=== PATIENT | female | born 2000 | race Caucasian/White ===

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

== ENCOUNTER → 2022-10-22 | Outpatient (CLI) | payer BC ==
--- NOTE | 2022-10-22 09:23 | Diagnostic Imaging Report ---
PROCEDURE: US Gallbladder. TECHNIQUE: Multiple real-time grayscale images were obtained over the right upper quadrant in various projections. INDICATION: Right upper quadrant pain, nausea, vomiting and bloating. FINDINGS: The liver is normal in size without focal lesions. There is hepatopetal flow in main portal vein. No biliary duct dilatation. Common bile duct measures less than 3 mm. There is no cholelithiasis, gallbladder wall thickening or pericholecystic fluid. Pancreas is unremarkable. Aorta is nonaneurysmal. IVC is patent. Right kidney is normal. No ascites. Overall examination is somewhat technically limited due to bowel gas. IMPRESSION: Essentially unremarkable right upper quadrant ultrasound. Dictated by: Dictated on workstation # [id number]
--- NOTE | 2022-10-22 10:44 | Diagnostic Imaging Report ---
RADIOPHARMACEUTICAL: 5.23 mCi Tc-99m Choletec IV INDICATION: Right upper quadrant pain. COMPARISON: Ultrasound from this same date. TECHNIQUE: Anterior dynamic imaging for 45 minutes. Additional 60 minute imaging was performed after patient ingested an 8 ounce can of Ensure Plus. FINDINGS: There is homogenous uptake throughout the liver. The gallbladder is visualized at 10 minutes and small bowel at 20 minutes. After ingesting the 8 ounce can of Ensure Plus, there is normal contraction of the gallbladder with normal calculated GBEF at 63%. IMPRESSION: 1. Normal HIDA Scan without evidence of cystic or common duct obstruction. 2. Normal GBEF of 63%. Dictated by: Dictated on workstation # [id number]
== END ==
LOC: RAD 07:19
PROVIDERS: ATTEND Surgery
DX: R10.11 Right upper quadrant pain (principal); R11.2 Nausea with vomiting, unspecified
CPT/HCPCS: 76705; 78227; A9537

== ENCOUNTER 2022-10-31 06:21 | Outpatient (CLI) | payer BC ==
[~2022-10-31] VITALS: Ht 170.2 cm; Wt 74.0 kg
[2022-10-31] MEDS ORDERED: NORE-211 PO (09:35)
[2022-10-31] MEDS ORDERED: SPIR50TA4 PO (09:35)
[2022-11-07] MEDS ORDERED: PANT40TA2 PO (13:02)
== END 2022-10-31 10:03 | disposition home or self-care (01) ==
LOC: PREOP 06:21
PROVIDERS: ATTEND Surgery
DX: Z01.818 Encounter for other preprocedural examination (principal)

== ENCOUNTER 2022-11-07 11:57 | Day surgery (SDC) | payer BC ==
[~2022-11-07] VITALS: Ht 170 cm; Wt 74.0 kg
[~2022-11-07 11:57] MED LIST: LACTATED RINGERS 1,000 ML IV STA; NORE-211 PO; SPIR50TA4 PO
[2022-11-07] MEDS ORDERED: HURRICAINE EXT TUBE (BENZOCAINE) XX PRN (12:00)
[2022-11-07] MEDS ORDERED: LIDOCAINE JELLY 2% 6 ML SYRINGE MM PRN (12:00)
[2022-11-07] MEDS ORDERED: LACTATED RINGERS 1,000 ML IV ONE (12:10)
[2022-11-07] MEDS ORDERED: HURRICAINE EXT TUBE (BENZOCAINE) ONE (12:10)
[2022-11-07 12:18] VITALS: BP 126/81
--- NOTE | 2022-11-07 13:01 | Progress Note-Pre Operative ---
Pre-Operative Progress Note Date of Available H&P: Nov 07, 2022 Date H&P Reviewed: Nov 07, 2022 Time H&P Reviewed: 12:30 History & Physical: No changes noted Pre-Operative Diagnosis: persistent abdominal pain. MAMADOU DELGADO MD Nov 07, 2022 13:01
[2022-11-07] MEDS ORDERED: PANT40TA2 PO (13:02)
--- NOTE | 2022-11-07 13:02 | Discharge Inst-Surgical ---
D/C Lap Instructions-KIDO New, Converted, or Re-Newed RX: RX on Chart Follow Up Appt in 1 week Activity as tolerated High Fiber Diet 25g or more per day Avoid Alcohol, Caffeine, Spicy [place] and Acid foods. Drink 64 fluid oz or more of fluids per day. Symptoms to Report: Fever over 101 degree F, Nausea/Vomiting If any problems/questions: Contact your physician or go to Emergency Room MAMADOU DELGADO MD Nov 07, 2022 13:02
[2022-11-07] MEDS ORDERED: ONDANSETRON 4 MG/2 ML (SDV) Z0FRAN IVP PRN (13:15)
[2022-11-07] MEDS ORDERED: ONDANSETRON 4 MG (ZOFRAN) ORAL DISSOLVE TAB PO PRN (13:15)
[2022-11-07] MEDS ORDERED: MIDAZOLAM 2 MG/2 ML (VERSED) VIAL ONE (13:55)
[2022-11-07] MEDS ORDERED: PROPOFOL INJECTION 50 ML IV ONE ×2 (13:55→14:09)
--- NOTE | 2022-11-07 14:41 | Anesthesia-General Post-Op ---
MAC Patient Condition Mental Status/LOC: Same as Preop Cardiovascular: Satisfactory Nausea/Vomiting: Absent Respiratory: Satisfactory Pain: Controlled Complications: Absent Post Op Complications Complications None Follow Up Care/Instructions Patient Instructions None needed. Anesthesiology Discharge Order Discharge Order Patient is doing well, no complaints, stable vital signs, no apparent adverse anesthesia problems. No complications reported per nursing. ERIC PAYNE SAFETY AND SECURITY OFFICER Nov 07, 2022 14:41
[2022-11-07] MEDS ORDERED: LIDOCAINE JELLY 2% 6 ML SYRINGE ONE (14:42)
[2022-11-07 14:43] VITALS: BP 134/87
[2022-11-07 14:48] VITALS: BP 135/74
[2022-11-07 14:50] VITALS: BP 135/74
[2022-11-07 15:15] VITALS: BP 135/74
[2022-11-07 15:30] VITALS: BP 135/74
--- NOTE | 2022-11-07 15:53 | Progress Note-Post Operative ---
Post-Operative Progess Note Surgeon (s)/Foreign Exchange Services Manager (s) Surgeon MAMADOU DELGADO MD Foreign Exchange Services Manager: none Pre-Operative Diagnosis persistent abdominal pain. Post-Operative Diagnosis reflux esophagitis(grade B), small HH(1.5cm), moderate gastritis. normal colon and rectum without and mucosal inflammatory changes. Procedure & Operative Findings Date of Procedure 11/07/22 Procedure Performed/Findings EGD with bx. Colonoscopy. Anesthesia Type mac Estimated Blood Loss Estimated blood loss (mL): minimal Specimens/Packing Specimens Removed ge jxn, antrum MAMADOU DELGADO MD Nov 07, 2022 15:53
--- NOTE | 2022-11-07 21:11 | OPERATIVE REPORT ---
DATE OF SERVICE: 11/07/2022 ATTENDING PRIMARY CARE PHYSICIAN: Marichuy Campbell MD PREOPERATIVE DIAGNOSIS: Persistent crampy abdominal pain, a few episodes of nausea and vomiting usually after eating meals. No diarrhea or constipation, no red blood per rectum, no dark tarry stools. Family history of ulcerative colitis. POSTOPERATIVE DIAGNOSES: A reflux esophagitis, [place] grade B, small hiatal hernia, 1.5 cm in size. Moderate gastritis. No formal ulcerations, polyps or any neoplasms. Pylorus and duodenum appeared normal. No significant hemorrhoids. The remainder of the colon and rectum were normal. There were no polyps, neoplasms as well as no mucosal inflammatory changes identified. PROCEDURE: EGD with biopsy, colonoscopy. SURGEON: Mamadou Delgado MD ANESTHESIA: Monitored anesthesia care. ESTIMATED BLOOD LOSS: Minimal. FINDINGS: A reflux esophagitis, [place] grade B, small hiatal hernia, 1.5 cm in size. Moderate gastritis. No formal ulcerations, polyps or any neoplasms. Pylorus and duodenum appeared normal. No significant hemorrhoids. The remainder of the colon and rectum were normal. There were no polyps, neoplasms as well as no mucosal inflammatory changes identified. DISPOSITION: The patient tolerated the procedure well. INDICATIONS: The patient is a 22-year-old female referred over to us for pain in the upper abdomen on an intermittent basis for the past 2-3 months. She states that with that, she may have some episodes of nausea and has had 2 episodes of vomiting usually after eating a meal. She states that the pain is sharp in nature and also does get some abdominal bloating. She does not report any issues with loose stools or diarrhea as well as no red blood per rectum, nor any dark tarry stools. She does not report any family history of colon cancer; however, does have a family history of ulcerative colitis with her mother and sister being diagnosed with the disease. The patient was brought to the endoscopy suite and laid in the left lateral decubitus position. After adequate IV pain and sedative medications and monitored anesthesia care, the mouthpiece was applied. The endoscope was placed in the mouth, visualize the pharynx and hypopharyngeal region. Vocal cords, epiglottis and vallecula identified and appeared to be normal. The endoscope was then gently intubated into the esophageal opening and esophagus insufflated. The endoscope was then advanced through the first, second and third portions of esophagus at the level of the GE junction, reflux esophagitis, [place] grade B identified. No ulcers or strictures identified. A biopsy was taken with forceps with visualization of good hemostasis. The endoscope was then advanced into the stomach and endoscope retroflexed, visualizing a small hiatal hernia approximately 1.5 cm in size. There was a [id number] gastritis. No formal ulcerations, polyps or any neoplasms. A biopsy was taken of the antrum to rule out H. pylori with visualization of good hemostasis. The endoscope was then advanced through the pylorus and the first and second portion of the duodenum, which appeared normal with no mucosal inflammatory changes. The endoscope was then slowly withdrawn while taking a second look and suctioning of residual air with no additional findings. A digital rectal examination was performed. No significant hemorrhoids identified. Normal sphincter tone was felt and there were no palpable masses. There were no perianal fistulas tracts, erythema or any fluctuance to indicate any abscess. The endoscope was then intubated into the anus, rectum gently insufflated. The endoscope was then advanced through the valves of Elliott of the rectum with no polyps or any neoplasms identified. We then proceeded through the sigmoid colon, which was normal. The endoscope was then advanced through the remainder of the descending, transverse and ascending colon to the cecum, which were normal. There were no mucosal inflammatory changes throughout the colon or rectum. The endoscope was then slowly withdrawn while taking a second look and suctioning of residual air with no additional findings. The patient tolerated the procedure well. We will recommend the necessary lifestyle and dietary accommodation, which would include a small and more frequent meals, avoidance of eating at night as well as head elevation while lying supine. She also needs to avoid caffeinated beverages, spicy, greasy and acidic foods and we will also proceed with trial of omeprazole 40 mg daily. We will also recommend a low residue diet for now to see if this may help with her crampy abdominal pain. We feel that there is also a strong possibility that this may be the gallbladder etiology and we will also schedule her for an ultrasound and if this does not show any abnormalities, then proceed with a HIDA scan to look for the possibility of symptomatic biliary dyskinesia. Job ID: [id number] DocumentID: [id number] Dictated Date: 11/07/2022 14:47:54 Donations Attendant Date: 11/07/2022 21:09:00 Dictated By: MAMADOU DELGADO MD
== END 2022-11-07 15:30 | disposition home or self-care (01) ==
LOC: ENDO 11:57
PROVIDERS: ATTEND Surgery
DX: K21.00 Gastro-esophageal reflux disease with esophagitis, without bleeding (principal); K44.9 Diaphragmatic hernia without obstruction or gangrene; K29.50 Unspecified chronic gastritis without bleeding; Z28.310 Unvaccinated for COVID-19; Z83.79 Family history of other diseases of the digestive system
CPT/HCPCS: 84703

== ENCOUNTER 2022-11-22 05:33 | Outpatient (CLI) | payer BC ==
[~2022-11-22] VITALS: Ht 170.2 cm; Wt 74.8 kg
[~2022-11-22 05:33] MED LIST changes: -LACTATED RINGERS 1,000 ML IV STA; +PANT40TA2 PO
== END 2022-11-22 17:47 | disposition home or self-care (01) ==
LOC: PREOP 05:33
PROVIDERS: ATTEND Surgery
DX: Z01.818 Encounter for other preprocedural examination (principal)

== ENCOUNTER 2022-11-29 09:58 | Day surgery (SDC) | payer BC ==
[2022-11-29] VITALS (11 sets, daily range): BP systolic 106–130; BP diastolic 62–86
[~2022-11-29] VITALS: Ht 170.2 cm; Wt 74.8 kg
[2022-11-29] MEDS ORDERED: CLINDAMYCIN 600 MG/50 ML IVPB 50 ML IV ONE (10:15)
[2022-11-29] MEDS: LACTATED RINGERS 1,000 ML IV PRN ×2 (10:36→12:50)
[2022-11-29] MEDS ORDERED: LIDOCAINE 1% w/EPI 1:100,000 20 ML VIAL ONE ×2 (10:38→12:05)
--- NOTE | 2022-11-29 10:40 | Progress Note-Pre Operative ---
Pre-Operative Progress Note Date H&P Reviewed: Nov 29, 2022 Time H&P Reviewed: 10:35 History & Physical: H&P Reviewed, Patient Examed, No changes noted Pre-Operative Diagnosis: Biliary Dyskinesia PAYTON CARVAJAL APRN Nov 29, 2022 10:40
[2022-11-29] MEDS ORDERED: HYDR-3817 PO (10:42)
--- NOTE | 2022-11-29 10:43 | Discharge Inst-Surgical ---
D/C Lap Instructions-KIDO Reconcile Patient Problems Problems Reviewed?: Yes New, Converted, or Re-Newed RX: RX on Chart Follow Up Appt in 2 weeks Activity as tolerated No driving for 24 hours No driving while on pain medications Incentive Spirometry use every 2 hours while awake Regular Diet Symptoms to Report: Fever over 101 degree F, Nausea/Vomiting Infection Signs and Symptoms to report: Increased redness, Foul odor of wound, Increased drainage Bathing instructions: May shower Operative Area Clean/Dry; Keep incision clean/dry If any problems/questions: Contact your physician or go to Emergency Room PAYTON CARVAJAL APRN Nov 29, 2022 10:43
[2022-11-29] MEDS ORDERED: ONDANSETRON 4 MG/2 ML (SDV) Z0FRAN IVP PRN ×2 (10:45→13:45)
[2022-11-29] MEDS ORDERED: HYDROcodone/ACETAMINOPHEN 5 MG/325 MG TABLET PO ONE (10:45)
[2022-11-29] MEDS ORDERED: ACETAMINOPHEN 325 MG TABLET PO PRN (10:45)
[2022-11-29] MEDS ORDERED: morphine INJ 10 MG/ML 1ML (SYR OR VIAL) IVP PRN (10:45)
[2022-11-29] MEDS ORDERED: GLYCOPYRROLATE INJ 0.2 MG/ML 2 ML VIAL ONE (11:34)
[2022-11-29] MEDS ORDERED: LIDOCAINE PF 2% 5 ML VIAL ONE (11:34)
[2022-11-29] MEDS ORDERED: dexAMETHasone INJ 10 MG/ML 1 ML VIAL ONE (11:34)
[2022-11-29] MEDS ORDERED: proPOfol 200 MG/20 ML (DIPRIVAN) VIAL IV ONE (11:34)
[2022-11-29] MEDS ORDERED: ONDANSETRON 4 MG/2 ML (SDV) Z0FRAN ONE ×2 (11:34→15:37)
[2022-11-29] MEDS ORDERED: fentaNYL INJECTION 100 MCG/2 ML VIAL ONE ×2 (11:34→13:10)
[2022-11-29] MEDS ORDERED: MIDAZOLAM INJ 2 MG/2 ML VIAL ONE (11:34)
[2022-11-29] MEDS ORDERED: ROCURONIUM 50 MG/5 ML (ZEMURON) VIAL IV ONE (11:34)
[2022-11-29] MEDS ORDERED: NEOSTIGMINE 1 MG/1ML 10 ML VIAL ONE (11:34)
[2022-11-29] MEDS ORDERED: SEVOFLURANE (ULTANE) 15 ML INHAL SOLN ONE (13:13)
--- NOTE | 2022-11-29 13:20 | Progress Note-Post Operative ---
Post-Operative Progess Note Surgeon (s)/Firearms Expert (s) Surgeon MAMADOU DELGADO MD Firearms Expert: vee savage TRAINING ASSOCIATE Pre-Operative Diagnosis Biliary Dyskinesia Post-Operative Diagnosis same Procedure & Operative Findings Date of Procedure 11/29/22 Procedure Performed/Findings laparoscopic cholecystectomy Anesthesia Type get Estimated Blood Loss Estimated blood loss (mL): minimal Specimens/Packing Specimens Removed gallbladder MAMADOU DELGADO MD Nov 29, 2022 13:20
[2022-11-29] MEDS ORDERED: morphine INJ 10 MG/ML 1ML (SYR OR VIAL) IVP ONE (13:45)
[2022-11-29] MEDS ORDERED: HYDROmorphone INJECTION 2 MG/ML VIAL IV ONE (13:45)
--- NOTE | 2022-11-29 13:51 | Anesthesia-General Post-Op ---
General Patient Condition Mental Status/LOC: Same as Preop Cardiovascular: Satisfactory Nausea/Vomiting: Absent Respiratory: Satisfactory Pain: Controlled Complications: Absent Post Op Complications Complications None Follow Up Care/Instructions Patient Instructions None needed. Anesthesia/Patient Condition Patient Condition Patient is doing well in PACU with no complaints, stable vital signs, no apparent adverse anesthesia problems. No complications reported per nursing. CHARLA PEREIRA DO Nov 29, 2022 13:51
[2022-11-29] MEDS ORDERED: HYDROcodone/ACETAMINOPHEN 5 MG/325 MG TABLET ONE (14:16)
[2022-11-29] MEDS ORDERED: KETOROLAC INJ 30 MG/ML VIAL ONE (15:37)
[2022-11-29] MEDS ORDERED: KETOROLAC INJ 30 MG/ML VIAL IVP ONE (16:00)
--- NOTE | 2022-11-29 20:46 | OPERATIVE REPORT ---
DATE OF SERVICE: 11/29/2022 ATTENDING PRIMARY CARE PHYSICIAN: Marichuy Campbell MD PREOPERATIVE DIAGNOSIS: Symptomatic biliary dyskinesia. POSTOPERATIVE DIAGNOSIS: Symptomatic biliary dyskinesia. PROCEDURE: Laparoscopic cholecystectomy. SURGEON: Mamadou Delgado MD BRIAR [employer]OP SUPERVISOR: Singh Waldron APRN ANESTHESIA: General endotracheal. ESTIMATED BLOOD LOSS: Minimal. FINDINGS: Distended gallbladder, cholesterolosis of the gallbladder. DISPOSITION: The patient tolerated the procedure well. INDICATIONS: The patient is a 22-year-old female who was initially referred over to us for upper abdominal crampy pain for the past 4 months. She reports that this has been present in the upper abdominal quadrants and has been described as crampy in nature and associated with nausea as well as 2 episodes of vomiting usually after eating a meal. She reports that the discomfort was sharp in nature and she also did have associated abdominal bloating. She had then proceeded with an EGD and colonoscopy on 11/07/2022 and was found to have reflux esophagitis, [place] grade B as well as a small hiatal hernia, 1.5 cm in size as well as moderate gastritis. Colon and rectum were normal. She continued to have symptoms despite medical management and underwent an ultrasound, which did not show any gallstones; however, this was followed by a HIDA scan, which showed a normal ejection fraction 62%. However, after the administration of the Kinevac analogue she did have symptoms with abdominal bloating, crampy abdominal pain as well as nausea, but no vomiting. This was consistent with symptomatic biliary dyskinesia. DESCRIPTION OF PROCEDURE: The patient was brought to the operating room, laid supine on the table. After adequate IV pain and sedative medications and general endotracheal intubation, the abdomen was prepped and draped in standard surgical fashion. A 0.5% Marcaine with epinephrine was then used to anesthetize the overlying skin in the left upper abdominal quadrant and a transverse skin incision made using a #15 blade. An 0 silk suture was applied to the medial aspect of the incision for retraction and a Veress needle inserted with a low opening pressure of 0 mmHg. The abdomen was insufflated to 15 mmHg pressure. The Veress needle removed and a 5 mm XL 5 mm trocar placed followed by a 5 mm 45-degree angle laparoscope visualized the peritoneal cavity. A 4-quadrant abdominal exploration was performed. There was a slightly distended gallbladder, no gallbladder wall thickening. Under direct visualization, we then proceeded to place a supraumbilical 10 mm port after the skin and peritoneal lining were anesthetized using 0.5% Marcaine with epinephrine and a transverse skin incision made using a #15 blade. An 8 and her right upper abdominal quadrant 5 mm port was placed. The patient was placed in reverse Trendelenburg position as well as planed right side up, left sidedown and the fundus of the gallbladder and retracted anteriorly and superiorly. The hepatoduodenal ligament was then dissected using blunt dissection as well as electrocautery using the hook instrument as well as the [place] dissector. The entire critical view of safety was identified including the triangle of calot, as well as the cystic duct and artery as the only 2 structures going into the gallbladder. A timeout was then taken and the cystic duct and artery were then clipped proximally and distally and cut with EndoShears. The gallbladder was then dissected off the liver bed using cautery on hook instrument with visualization of good hemostasis as well as no leaking ducts of [place]. The gallbladder was removed through the 10 mm port site using an EndoCatch bag. The 10 mm port site fascia and peritoneum were then closed under direct visualization using a Dillan-Víctor device and 0 Vicryl suture. The abdomen was desufflated and the remaining ports removed. All skin incisions were closed using 4-0 Monocryl running subcuticular sutures. Wounds were then cleaned and covered with Dermabond. The patient tolerated the procedure well. We will start IV and oral pain medication as well as a clear liquid diet. Once tolerating clears and has good pain control with oral pain medications, ambulating well, we will discharge her home where she will be instructed to do no heavy lifting or exertion for the next 2 weeks. Job ID: [id number] DocumentID: [id number] Dictated Date: 11/29/2022 13:28:18 Real Estate Rental Agent Date: 11/29/2022 20:44:00 Dictated By: MAMADOU DELGADO MD [id number]
== END 2022-11-29 15:45 | disposition home or self-care (01) ==
LOC: SDC 09:58
PROVIDERS: ATTEND Surgery
DX: K82.8 Other specified diseases of gallbladder (principal); K80.10 Calculus of gallbladder with chronic cholecystitis without obstruction; Z28.310 Unvaccinated for COVID-19
CPT/HCPCS: 84703; 87081; 88304